=== PATIENT | female | born 1935 | race Native Hawaiian/Other Pacific Islander ===

== ENCOUNTER 2016-08-17 10:52 | Outpatient (CLI) | payer OTHER ==
[~2016-08-17 10:52] MED LIST: CIPRO500 MG OR; DICL1GEL2 TOP; IBUPROFEN; LEVO0.0723 PO; MELOXICAM7.5 MG OR; OMEPRAZOLE20 M2 OR
== END 2016-08-17 19:08 | disposition home or self-care (01) ==
LOC: RAD 10:52
DX: R05 Cough (principal)

== ENCOUNTER 2017-06-07 11:06 | Outpatient (CLI) | payer OTHER ==
[2017-06-07 11:50] LABS: PLATELET COUNT 242 K/uL (152-353)
[2017-06-07 11:56] LABS: POTASSIUM 3.9 mmol/L (3.6-5.2)
== END 2017-06-07 12:10 | disposition home or self-care (01) ==
LOC: LABW 11:06
PROVIDERS: Internal Medicine
DX: E03.8 Other specified hypothyroidism (principal)
CPT/HCPCS: 36415; 80053; 80061; 81000; 84439; 84443; 85027

== ENCOUNTER 2017-08-15 14:52 | Outpatient (CLI) | payer OTHER | END 2017-08-15 18:00 | disposition home or self-care (01) | LOC: RAD 14:52 | DX: R05 Cough (principal) ==

== ENCOUNTER 2017-10-10 10:16 | Outpatient (CLI) | payer OTHER | END 2017-10-10 20:02 | disposition home or self-care (01) | LOC: LABW 10:16 | PROVIDERS: Internal Medicine | DX: E78.00 Pure hypercholesterolemia, unspecified (principal) | CPT/HCPCS: 36415; 80061 ==

== ENCOUNTER 2019-02-13 10:51 | Outpatient (CLI) | payer OTHER ==
[2019-02-13 11:17] LABS: PLATELET COUNT 264 K/uL (152-353)
[2019-02-13 12:01] LABS: POTASSIUM 4.1 mmol/L (3.6-5.2)
== END 2019-02-13 23:30 | disposition home or self-care (01) ==
LOC: LABW 10:51
PROVIDERS: Internal Medicine
DX: E03.8 Other specified hypothyroidism (principal); E78.00 Pure hypercholesterolemia, unspecified
CPT/HCPCS: 36415; 80053; 80061; 81000; 84439; 84443; 85027

== ENCOUNTER 2019-06-25 15:50 | Outpatient (CLI) | payer OTHER | END 2019-06-25 19:19 | disposition home or self-care (01) | LOC: RAD 15:50 | DX: J40 Bronchitis, not specified as acute or chronic (principal) ==

== ENCOUNTER 2020-01-20 10:01 | Outpatient (CLI) | payer OTHER | END 2020-01-20 19:30 | disposition home or self-care (01) | LOC: CT 10:01 | DX: J45.991 Cough variant asthma (principal); R05 Cough ==

== ENCOUNTER 2020-04-01 10:21 | Outpatient (CLI) | payer OTHER | END 2020-04-01 20:12 | disposition home or self-care (01) | LOC: RAD 10:21 | PROVIDERS: ATTEND Internal Medicine | DX: J42 Unspecified chronic bronchitis (principal) ==

== ENCOUNTER 2020-04-02 11:29 | Outpatient (CLI) | payer OTHER | END 2020-04-02 20:06 | disposition home or self-care (01) | LOC: LAB 11:29 | PROVIDERS: ATTEND Internal Medicine | DX: U07.1 COVID-19 (principal); Z20.828 Contact with and (suspected) exposure to other viral communicable diseases | CPT/HCPCS: 87635; G2023; U0003 ==

== ENCOUNTER 2021-01-13 11:28 | Outpatient (CLI) | payer OTHER | END 2021-01-13 19:12 | disposition home or self-care (01) | LOC: RAD 11:28 | PROVIDERS: ATTEND Internal Medicine | DX: J42 Unspecified chronic bronchitis (principal) ==

== ENCOUNTER 2021-01-19 15:02 | Outpatient (CLI) | payer OTHER | END 2021-01-19 19:05 | disposition home or self-care (01) | LOC: LAB 15:02 | PROVIDERS: ATTEND Internal Medicine | DX: N39.0 Urinary tract infection, site not specified (principal) | CPT/HCPCS: 81000; 87086; 87088 ==

== ENCOUNTER 2021-02-03 08:56 | Outpatient (CLI) | payer OTHER | END 2021-02-03 19:22 | disposition home or self-care (01) | LOC: CT 08:56 | PROVIDERS: ATTEND Internal Medicine | DX: R31.9 Hematuria, unspecified (principal) ==

== ENCOUNTER 2021-09-06 14:20 | Outpatient (CLI) | payer OTHER ==
[2021-09-06 14:56] LABS: PLATELET COUNT 230 K/uL (152-353)
[2021-09-06 15:01] LABS: POTASSIUM 4.1 mmol/L (3.6-5.2)
== END 2021-09-06 19:05 | disposition home or self-care (01) ==
LOC: LAB 14:20
PROVIDERS: ATTEND Internal Medicine
DX: E03.8 Other specified hypothyroidism (principal)
CPT/HCPCS: 80053; 80061; 81000; 84439; 84443; 85027

== ENCOUNTER 2021-12-05 13:16 | Outpatient (CLI) | payer OTHER | END 2021-12-05 19:36 | disposition home or self-care (01) | LOC: LAB 13:16 | PROVIDERS: ATTEND Internal Medicine | DX: E03.8 Other specified hypothyroidism (principal) | CPT/HCPCS: 84439; 84443 ==

== ENCOUNTER 2022-02-06 16:21 | Outpatient (CLI) | payer OTHER | END 2022-02-06 21:00 | disposition home or self-care (01) | LOC: LAB 16:21 | PROVIDERS: ATTEND Internal Medicine | DX: E03.8 Other specified hypothyroidism (principal) | CPT/HCPCS: 84439; 84443 ==

== ENCOUNTER 2022-03-13 14:09 | Outpatient (CLI) | payer OTHER | END 2022-03-13 20:31 | disposition home or self-care (01) | LOC: LAB 14:09 | PROVIDERS: ATTEND Internal Medicine | DX: E03.8 Other specified hypothyroidism (principal) | CPT/HCPCS: 84439; 84443 ==

== ENCOUNTER 2022-04-19 12:06 | Outpatient (CLI) | payer OTHER ==
[2022-04-19 12:20] LABS: PLATELET COUNT 239 K/uL (152-353)
[2022-04-19 12:37] LABS: POTASSIUM 4.1 mmol/L (3.6-5.2)
== END 2022-04-19 19:00 | disposition home or self-care (01) ==
LOC: LAB 12:06
PROVIDERS: ATTEND Internal Medicine
DX: Z00.00 Encounter for general adult medical examination without abnormal findings (principal); Z79.899 Other long term (current) drug therapy; E03.8 Other specified hypothyroidism; J44.9 Chronic obstructive pulmonary disease, unspecified; E78.00 Pure hypercholesterolemia, unspecified
CPT/HCPCS: 80053; 80061; 84439; 84443; 85027

== ENCOUNTER 2022-07-31 12:01 | Outpatient (CLI) | payer OTHER | END 2022-07-31 19:03 | disposition home or self-care (01) | LOC: LAB 12:01 | PROVIDERS: ATTEND Internal Medicine | DX: E03.8 Other specified hypothyroidism (principal) | CPT/HCPCS: 84439; 84443 ==

== ENCOUNTER 2022-10-30 12:55 | Outpatient (CLI) | payer OTHER | END 2022-10-30 20:49 | disposition home or self-care (01) | LOC: LAB 12:55 | PROVIDERS: ATTEND Internal Medicine | DX: E03.8 Other specified hypothyroidism (principal); E78.00 Pure hypercholesterolemia, unspecified | CPT/HCPCS: 80061; 84439; 84443 ==